=== PATIENT | female | born 2000 | race Hispanic/Latino ===

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

== ENCOUNTER 2019-09-12 20:30 | Inpatient (IN) ==
[2019-09-12 21:00] LABS: URINE SOURCE VOIDED
[2019-09-12 21:12] LABS: BILIRUBIN URINE NEGATIVE (NEGATIVE); BLOOD URINE SMALL (NEGATIVE); COLOR YELLOW; GLUCOSE URINE NEGATIVE (NEGATIVE); KETONE URINE NEGATIVE (NEGATIVE); LEUKOCYTES URINE NEGATIVE (NEGATIVE); NITRITE URINE NEGATIVE (NEGATIVE); PH URINE 6.5; PROTEIN URINE TRACE mg/dL (NEGATIVE); SP GRAVITY URINE 1.027; TURBIDITY URINE CLEAR (CLEAR); UROBILINOGEN URINE 2 mg/dL (NORMAL)
[2019-09-12 21:15] LABS: UR AMPHETAMINES QUAL NONE DETECTED (NONE DETECT); UR BARBITUATES QUAL NONE DETECTED (NONE DETECT); UR BENZODIAZEPIN QUAL NONE DETECTED (NONE DETECT); UR CANNABINOIDS QUAL NONE DETECTED (NONE DETECT); UR COCAINE QUAL NONE DETECTED (NONE DETECT); UR METHADONE QUAL NONE DETECTED (NONE DETECT); UR OPIATES QUAL NONE DETECTED (NONE DETECT); UR OXYCODONE QUAL NONE DETECTED (NONE DETECT); UR PCP QUAL NONE DETECTED (NONE DETECT)
[2019-09-12] MEDS ORDERED: AMPICILLIN 2 GM in NS 100 ML IV ONE (21:48)
[2019-09-12] MEDS ORDERED: KEFZOL 1 GM/D5W 1 GM/50 ML IVPB IV PRN (21:48)
[2019-09-12] MEDS ORDERED: PEPCID IV PRN (21:48)
[2019-09-12] MEDS ORDERED: REGLAN PO ONE (21:48)
[2019-09-12] MEDS ORDERED: PEPCID PO ONE (21:48)
[2019-09-12] MEDS ORDERED: PEPCID PO PRN (21:48)
[2019-09-12] MEDS ORDERED: STADOL IV PRN (21:48)
[2019-09-12] MEDS ORDERED: TYLENOL PO PRN (21:48)
[2019-09-12] MEDS ORDERED: SODIUM CHLORIDE 0.9% INJ SCH (22:00)
[2019-09-12] MEDS ORDERED: PITOCIN 30 UNITS/NS 30 UNIT/500 ML IV.SOLN IV SCH (22:00)
[2019-09-12] MEDS: LR 1,000 ML IV SCH (22:45)
[2019-09-12 23:21] LABS: BASO# 0.02 X1000 (0.0-0.2); BASO% 0.3 % (0.0-0.8); EOS# 0.08 X1000 (0.0-0.7); EOS% 1.1 % (0.0-10.0); HEMATOCRIT 37.8 % (37.0-47.0); HEMOGLOBIN 12.3 g/dL (12.0-16.0); IMM GRAN# 0.03 X1000 (0.0-0.04); IMM GRAN% 0.4 % (0.0-0.5); LYMPH% 34.9 % (20.5-51.1); MCHC 32.5 g/dL (33-37); MCV 86.1 FL (81-99); MONO# 0.48 X1000 (0.11-0.59); MONO% 6.5 % (1.7-9.3); MPV 10.5 FL (7.4-10.4); NEUT# 4.23 X1000 (1.4-6.5); NEUT% 56.8 % (42.2-75.2); PLT 196 X1000 (130-400); RBC 4.39 XMIL (4.2-5.4); RDW 14.8 % (11.5-14.5); WBC 7.44 X1000 (4.8-10.8)
[2019-09-12] MEDS ORDERED: AYR NASAL SPRAY NAS PRN (23:34)
--- NOTE | 2019-09-12 23:41 | HISTORY AND PHYSICAL ---
HISTORY OF PRESENT ILLNESS: The patient is a 18-year-old 2, para 1, at approximately 40 weeks gestation who presents to Labor and delivery with rupture of membranes and early labor. is complicated by minimal care, history of gestational diabetes in previous . No diabetes screening this . Fingerstick is 76. PREVIOUS MEDICAL HISTORY: Negative. PREVIOUS SURGICAL HISTORY: Negative. OB HISTORY: Pertinent for 1 prior vaginal delivery, 8 pounds and 2 ounces, uncomplicated. ALLERGIES: To medicines, none. MEDICINES: vitamins. REVIEW OF SYSTEMS: Negative for chest pain, shortness of breath, headache, cough, runny nose, fever, sore throat. Positive for movement and leakage of fluid. No vaginal bleeding. PHYSICAL EXAM: GENERAL: This is well-developed, woman appearing her stated age. Abdomen is gravid, Dong's to 4000 g. HEART: Regular rate and rhythm. Breathing is nonlabored. EXTREMITIES: Without clubbing, cyanosis, edema. PELVIC: 3 cm, 50% by RN. INITIAL ASSESSMENT: A 18-year-old 2, para 1, at 40 weeks gestation. complicated by minimal care and history of gestational diabetes. 1. History of gestational diabetes. Current fingerstick is 76 and estimated weight is 4000 g by Odng's. 2. Rupture of membranes. Unknown group B strep. Plan ampicillin for GBS prophylaxis. 3. Pain management. The patient proceeded to Labor and delivery in 1st with no pain management and anticipate same. 4. well being, reactive tracing. 5. Anticipate normal spontaneous vaginal delivery. [facility]
[2019-09-13] MEDS: AMPICILLIN 1 GM in NS 50 ML IV SCH ×4 (02:30→20:50)
[2019-09-13] MEDS ORDERED: MINERAL OIL PO ONE (04:55)
[2019-09-13] MEDS: ZOFRAN IV PRN ×2 (05:40→11:50)
[2019-09-13] MEDS ORDERED: XYLOCAINE-MPF 1% INJ ONE (06:18)
--- NOTE | 2019-09-13 06:20 | OB/GYN PROGRESS NOTE ---
- Subjective at 40 wks PROM on OT receiving amp for GBS GBS FHT cat 1 Cx B9b-3dem SVE 6cm per RN anticipate OB Physical Exam Vital Signs - 8 hr 09/13/19 00:08 Temperature 97.7 F Pulse Rate 87 Respiratory Rate 18 Blood Pressure 119/72 O2 Sat by Pulse Oximetry 99 - CONSTITUTIONAL General Appearance: appears well - GENITOURINARY Vaginal Exam: 6cm Active Medications Generic Name Dose Route Start Last Admin Trade Name Freq PRN Reason Stop Dose Admin Acetaminophen 650 mg 09/12/19 21:48 Tylenol PO Q4-6H PRN PRN Headache Butorphanol Tartrate 2 mg 09/12/19 21:48 09/13/19 05:42 Stadol IV 2 mg PRN PRN Administration Pain Famotidine 20 mg 09/12/19 21:48 Pepcid IV Q12H PRN PRN GI upset or indigestion Famotidine 40 mg 09/12/19 21:48 Pepcid PO Q12H PRN PRN GI upset or indigestion Lactated Ringer's 1,000 mls @ 125 mls/hr 09/12/19 22:00 09/12/19 22:45 Lr IV 125 mls/hr .Q8H ERICKA Administration Oxytocin/Sodium Chloride 30 unit in 500 mls @ 0 mls/hr 09/12/19 22:00 09/13/19 00:30 Pitocin 30 Units/Ns IV 2 mls/hr .Q0M ERICKA Administration As Directed Ampicillin Sodium 1 gm/ Sodium 50 mls @ 100 mls/hr 09/13/19 01:49 09/13/19 02:30 Chloride IV 100 mls/hr Q4H ERICKA Administration Cefazolin Sodium/Dextrose 1 gm in 50 mls @ 100 mls/hr 09/12/19 21:48 Kefzol 1 Gm/D5w IV ONCE PRN PRN SECTION Ondansetron HCl 4 mg 09/12/19 21:48 09/13/19 05:40 Zofran IV 4 mg PRN PRN Administration Nausea Sodium Chloride 5 - 10 ml 09/12/19 22:00 Sodium Chloride 0.9% INJ DIRECTED ERICKA Sodium Chloride 0 ml 09/12/19 23:34 09/12/19 23:42 [place] Nasal [place] CINDY 2 spray PRN PRN Administration Congestion Laboratory Results - last 24 hr 09/12/19 09/12/19 09/12/19 20:35 20:35 20:48 WBC RBC Hgb Hct MCV MCH MCHC RDW Std Deviation Plt Count MPV Immature Gran % (Auto) Neut % (Auto) Lymph % (Auto) [place] % (Auto) Eos % (Auto) Baso % (Auto) Immature Gran # (Auto) Neut # (Auto) Lymph # (Auto) [place] # (Auto) Eos # (Auto) Baso # (Auto) POC Glucose Urine Source VOIDED Urine Color YELLOW Urine Turbidity CLEAR Urine pH 6.5 Ur Specific [place] 1.027 Urine Protein TRACE A Ur Glucose (Stick) NEGATIVE Ur Ketones (Stick) NEGATIVE Urine Blood SMALL A Urine Nitrite NEGATIVE Urine Bilirubin NEGATIVE Urobilinogen Dipstick 2 A Urine Leukocytes NEGATIVE Membranes Rupture POSITIVE Urine Opiates Screen NONE DETECTED Ur Oxycodone Screen NONE DETECTED Ur Methadone, Qual NONE DETECTED Ur Barbiturates Screen NONE DETECTED Ur Phencyclidine Scrn NONE DETECTED Ur Amphetamines Screen NONE DETECTED U Benzodiazepines Scrn NONE DETECTED Urine Cocaine Screen NONE DETECTED U Cannabinoids Screen NONE DETECTED RPR Blood Type Antibody Screen 09/12/19 09/12/19 09/12/19 21:44 22:45 22:45 WBC 7.44 RBC 4.39 Hgb 12.3 Hct 37.8 MCV 86.1 MCH 28.0 MCHC 32.5 L RDW Std Deviation 14.8 H Plt Count 196 MPV 10.5 H Immature Gran % (Auto) 0.4 Neut % (Auto) 56.8 Lymph % (Auto) 34.9 [place] % (Auto) 6.5 Eos % (Auto) 1.1 Baso % (Auto) 0.3 Immature Gran # (Auto) 0.03 Neut # (Auto) 4.23 Lymph # (Auto) 2.60 [place] # (Auto) 0.48 Eos # (Auto) 0.08 Baso # (Auto) 0.02 POC Glucose 74 Urine Source Urine Color Urine Turbidity Urine pH Ur Specific [place] Urine Protein Ur Glucose (Stick) Ur Ketones (Stick) Urine Blood Urine Nitrite Urine Bilirubin Urobilinogen Dipstick Urine Leukocytes Membranes Rupture Urine Opiates Screen Ur Oxycodone Screen Ur Methadone, Qual Ur Barbiturates Screen Ur Phencyclidine Scrn Ur Amphetamines Screen U Benzodiazepines Scrn Urine Cocaine Screen U Cannabinoids Screen RPR NON-REACTIVE Blood Type Antibody Screen 09/12/19 22:45 WBC RBC Hgb Hct MCV MCH MCHC RDW Std Deviation Plt Count MPV Immature Gran % (Auto) Neut % (Auto) Lymph % (Auto) [place] % (Auto) Eos % (Auto) Baso % (Auto) Immature Gran # (Auto) Neut # (Auto) Lymph # (Auto) [place] # (Auto) Eos # (Auto) Baso # (Auto) POC Glucose Urine Source Urine Color Urine Turbidity Urine pH Ur Specific [place] Urine Protein Ur Glucose (Stick) Ur Ketones (Stick) Urine Blood Urine Nitrite Urine Bilirubin Urobilinogen Dipstick Urine Leukocytes Membranes Rupture Urine Opiates Screen Ur Oxycodone Screen Ur Methadone, Qual Ur Barbiturates Screen Ur Phencyclidine Scrn Ur Amphetamines Screen U Benzodiazepines Scrn Urine Cocaine Screen U Cannabinoids Screen RPR Blood Type A POSITIVE Antibody Screen NEGATIVE
[2019-09-13] MEDS: LR 1,000 ML IV SCH ×2 (06:33→22:48)
--- NOTE | 2019-09-13 08:19 | OB/GYN PROGRESS NOTE ---
- Subjective 18 yo at 40w0d with PROM, limited PNC, Hx A1-GDM Patient seen and examined. AROM of forebag performed with clear fluid. Head well applied to cervix. SVE: 6/80/-2. She is feeling regular contractions. She declines an epidural at this time. She is receiving ampicillin for GBS unknown. Pitocin at 20mu/min. OB Physical Exam Vital Signs - 8 hr 09/13/19 07:39 Temperature 97.6 F Pulse Rate 78 Respiratory Rate 16 Blood Pressure 118/62 O2 Sat by Pulse Oximetry 100 - CONSTITUTIONAL General Appearance: appears well, alert, no apparent distress - HEAD, EARS, NOSE, MOUTH & THROAT HENMT: normocephalic/atraumatic - RESPIRATORY Respiratory: lungs clear, no respiratory distress - CARDIOVASCULAR Cardiovascular: regular rate, rhythm - GASTROINTESTINAL (ABDOMEN) Abdominal Exam: non tender, soft, other (gravid) - GENITOURINARY Cervica Dilation: 6 Cervical Effacement: 80 Station: -2 Heart Rate: 120/moderate/+accel/no decel [place]: Q1-2 minutes - MUSCULOSKELETAL Extremity: normal range of motion, non-tender - NEUROLOGIC Neurologic: grossly normal - PSYCHIATRIC Psych/Mental Status: normal mood/affect Active Medications Generic Name Dose Route Start Last Admin Trade Name Freq PRN Reason Stop Dose Admin Acetaminophen 650 mg 09/12/19 21:48 Tylenol PO Q4-6H PRN PRN Headache Butorphanol Tartrate 2 mg 09/12/19 21:48 09/13/19 05:42 Stadol IV 2 mg PRN PRN Administration Pain Famotidine 20 mg 09/12/19 21:48 Pepcid IV Q12H PRN PRN GI upset or indigestion Famotidine 40 mg 09/12/19 21:48 Pepcid PO Q12H PRN PRN GI upset or indigestion Lactated Ringer's 1,000 mls @ 125 mls/hr 09/12/19 22:00 09/13/19 06:33 Lr IV 125 mls/hr .Q8H ERICKA Administration Oxytocin/Sodium Chloride 30 unit in 500 mls @ 0 mls/hr 09/12/19 22:00 09/13/19 00:30 Pitocin 30 Units/Ns IV 2 mls/hr .Q0M ERICKA Administration As Directed Ampicillin Sodium 1 gm/ Sodium 50 mls @ 100 mls/hr 09/13/19 01:49 09/13/19 06:33 Chloride IV 100 mls/hr Q4H ERICKA Administration Cefazolin Sodium/Dextrose 1 gm in 50 mls @ 100 mls/hr 09/12/19 21:48 Kefzol 1 Gm/D5w IV ONCE PRN PRN SECTION Ondansetron HCl 4 mg 09/12/19 21:48 09/13/19 05:40 Zofran IV 4 mg PRN PRN Administration Nausea Sodium Chloride 5 - 10 ml 09/12/19 22:00 Sodium Chloride 0.9% INJ DIRECTED ERICKA Sodium Chloride 0 ml 09/12/19 23:34 09/12/19 23:42 [place] Nasal [place] CINDY 2 spray PRN PRN Administration Congestion Laboratory Results - last 24 hr 09/12/19 09/12/19 09/12/19 20:35 20:35 20:48 WBC RBC Hgb Hct MCV MCH MCHC RDW Std Deviation Plt Count MPV Immature Gran % (Auto) Neut % (Auto) Lymph % (Auto) [place] % (Auto) Eos % (Auto) Baso % (Auto) Immature Gran # (Auto) Neut # (Auto) Lymph # (Auto) [place] # (Auto) Eos # (Auto) Baso # (Auto) POC Glucose Urine Source VOIDED Urine Color YELLOW Urine Turbidity CLEAR Urine pH 6.5 Ur Specific [place] 1.027 Urine Protein TRACE A Ur Glucose (Stick) NEGATIVE Ur Ketones (Stick) NEGATIVE Urine Blood SMALL A Urine Nitrite NEGATIVE Urine Bilirubin NEGATIVE Urobilinogen Dipstick 2 A Urine Leukocytes NEGATIVE Membranes Rupture POSITIVE Urine Opiates Screen NONE DETECTED Ur Oxycodone Screen NONE DETECTED Ur Methadone, Qual NONE DETECTED Ur Barbiturates Screen NONE DETECTED Ur Phencyclidine Scrn NONE DETECTED Ur Amphetamines Screen NONE DETECTED U Benzodiazepines Scrn NONE DETECTED Urine Cocaine Screen NONE DETECTED U Cannabinoids Screen NONE DETECTED RPR Blood Type Antibody Screen 09/12/19 09/12/19 09/12/19 21:44 22:45 22:45 WBC 7.44 RBC 4.39 Hgb 12.3 Hct 37.8 MCV 86.1 MCH 28.0 MCHC 32.5 L RDW Std Deviation 14.8 H Plt Count 196 MPV 10.5 H Immature Gran % (Auto) 0.4 Neut % (Auto) 56.8 Lymph % (Auto) 34.9 [place] % (Auto) 6.5 Eos % (Auto) 1.1 Baso % (Auto) 0.3 Immature Gran # (Auto) 0.03 Neut # (Auto) 4.23 Lymph # (Auto) 2.60 [place] # (Auto) 0.48 Eos # (Auto) 0.08 Baso # (Auto) 0.02 POC Glucose 74 Urine Source Urine Color Urine Turbidity Urine pH Ur Specific [place] Urine Protein Ur Glucose (Stick) Ur Ketones (Stick) Urine Blood Urine Nitrite Urine Bilirubin Urobilinogen Dipstick Urine Leukocytes Membranes Rupture Urine Opiates Screen Ur Oxycodone Screen Ur Methadone, Qual Ur Barbiturates Screen Ur Phencyclidine Scrn Ur Amphetamines Screen U Benzodiazepines Scrn Urine Cocaine Screen U Cannabinoids Screen RPR NON-REACTIVE Blood Type Antibody Screen 09/12/19 22:45 WBC RBC Hgb Hct MCV MCH MCHC RDW Std Deviation Plt Count MPV Immature Gran % (Auto) Neut % (Auto) Lymph % (Auto) [place] % (Auto) Eos % (Auto) Baso % (Auto) Immature Gran # (Auto) Neut # (Auto) Lymph # (Auto) [place] # (Auto) Eos # (Auto) Baso # (Auto) POC Glucose Urine Source Urine Color Urine Turbidity Urine pH Ur Specific [place] Urine Protein Ur Glucose (Stick) Ur Ketones (Stick) Urine Blood Urine Nitrite Urine Bilirubin Urobilinogen Dipstick Urine Leukocytes Membranes Rupture Urine Opiates Screen Ur Oxycodone Screen Ur Methadone, Qual Ur Barbiturates Screen Ur Phencyclidine Scrn Ur Amphetamines Screen U Benzodiazepines Scrn Urine Cocaine Screen U Cannabinoids Screen RPR Blood Type A POSITIVE Antibody Screen NEGATIVE OB Assessment & Plan (1) PROM with onset of labor within 24 hours of rupture Status: Acute Plan: 19 yo at 40w0d with PROM, RNI, Limited PNC, Hx A1-GDM 1. MF status reassuring, reactive tracing 2. CEFM/TOCO 3. S/p AROM of forebag 4. Continue pitocin augmentation 5. Ampicillin for GBS unknown status 6. Anticipate vaginal delivery
[2019-09-13] MEDS ORDERED: HEMABATE IM ONE (10:46)
[2019-09-13] MEDS ORDERED: METHERGINE ONE ×2 (10:51→10:53)
[2019-09-13] MEDS ORDERED: CYTOTEC ONE ×2 (10:54→10:56)
[2019-09-13] MEDS ORDERED: CYKLOKAPRON 1,000 MG in NS 100 ML IV ONE (10:59)
[2019-09-13 11:21] LABS: BASO# 0.01 X1000 (0.0-0.2); BASO% 0.1 % (0.0-0.8); EOS# 0.01 X1000 (0.0-0.7); EOS% 0.1 % (0.0-10.0); HEMATOCRIT 36.2 % (37.0-47.0); HEMOGLOBIN 11.9 g/dL (12.0-16.0); IMM GRAN# 0.02 X1000 (0.0-0.04); IMM GRAN% 0.2 % (0.0-0.5); LYMPH# 1.81 X1000 (1.2-3.4); LYMPH% 18.7 % (20.5-51.1); MCH 28.5 PG (27-31); MCHC 32.9 g/dL (33-37); MCV 86.6 FL (81-99); MONO# 0.37 X1000 (0.11-0.59); MONO% 3.8 % (1.7-9.3); MPV 10.5 FL (7.4-10.4); NEUT# 7.45 X1000 (1.4-6.5); NEUT% 77.1 % (42.2-75.2); PLT 189 X1000 (130-400); RBC 4.18 XMIL (4.2-5.4); RDW 14.9 % (11.5-14.5); WBC 9.67 X1000 (4.8-10.8)
[2019-09-13] MEDS ORDERED: MINERAL OIL PO PRN (11:22)
[2019-09-13] MEDS ORDERED: AMBIEN PO PRN (11:22)
[2019-09-13] MEDS ORDERED: PERI MEDS (DERMOPLAST/NUPERCAINAL/TUCKS) MISC PRN (11:22)
[2019-09-13] MEDS ORDERED: XYLOCAINE-MPF 1% INJ PRN (11:22)
[2019-09-13] MEDS ORDERED: PERCOCET-5 PO PRN (11:22)
[2019-09-13] MEDS ORDERED: M-M-R II VACCINE SUBQ ONE (11:22)
[2019-09-13] MEDS ORDERED: HYDROXYZINE IM PRN (11:22)
[2019-09-13] MEDS ORDERED: PITOCIN IM PRN (11:22)
[2019-09-13] MEDS ORDERED: BOOSTRIX VACCINE IM ONE (11:22)
[2019-09-13] MEDS ORDERED: CYTOTEC PO PRN (11:22)
[2019-09-13] MEDS ORDERED: BENADRYL IV PRN (11:22)
[2019-09-13] MEDS ORDERED: ATARAX PO PRN (11:22)
[2019-09-13] MEDS ORDERED: BENADRYL PO PRN (11:22)
[2019-09-13] MEDS ORDERED: PITOCIN 20 UNITS/NS 20 UNITS/1,000 ML IV.SOLN IV SCH (11:30)
[2019-09-13] MEDS ORDERED: PITOCIN 30 UNITS/NS 30 UNIT/500 ML IV.SOLN IV SCH (11:30)
[2019-09-13] MEDS ORDERED: MORPHINE IV ONE (11:32)
[2019-09-13 11:44] LABS: INR 0.99; PROTIME 13.1 Seconds (11.0-16.0)
[2019-09-13 11:45] LABS: PTT 28.5 Seconds (22.3-41.8)
--- NOTE | 2019-09-13 14:19 | OPERATIVE NOTE ---
PROCEDURE DATE: PROCEDURE PERFORMED: Spontaneous vaginal delivery with hemorrhage. DESCRIPTION OF PROCEDURE: A 18-year-old, G2, P1-0-0-1 at 40 weeks and 0 days, who presented with premature rupture of membranes. Labor was augmented with Pitocin and artificial rupture of amniotic forebag. She progressed to complete, and underwent a spontaneous vaginal delivery of a vigorous viable male infant in CAROL presentation with Apgars of 8 and 10. Infants head, shoulders, and body delivered without difficulty with maternal pushing effort. After delivery, brisk bleeding was noted from the uterus. Pitocin was started, and the placenta delivered spontaneously intact with a 3-vessel cord. The uterus was noted to be atonic with brisk bleeding coming from the cervical os. The patient received 0.25 mg of Hemabate IM, methergine 0.2 mg IM, and received 800 mcg of rectal Cytotec. Fundal massage was performed, and bleeding slowly decreased. Stat CBC and coags were obtained. She received tranexamic acid 1 gram IV x1. After administration of uterotonics and fundal massage, uterine fundus was noted to be firm, and bleeding significantly decreased. Estimated blood loss was 1000 mL. Urine straight cath was performed with approximately 300 mL of clear urine. Blood pressure 121/73, heart rate 95. Will continue strict urine output and pad counts. We will plan to schedule methargen 0.2 mg p.o. every 6 hours for 3 doses, and monitor bleeding carefully. No cervical lacerations or vaginal lacerations visualized. Anesthesia was none. Pediatric nurse in attendance. Will continue to monitor closely. [facility]
[2019-09-13] MEDS: METHERGINE PO SCH ×2 (16:28→21:15)
[2019-09-13] MEDS: MOTRIN PO PRN (16:29)
[2019-09-13] MEDS: PERCOCET-10 PO PRN (21:26)
[2019-09-13] MEDS: PERICOLACE PO SCH (22:47)
[2019-09-14 05:39] LABS: BASO# 0.01 X1000 (0.0-0.2); BASO% 0.1 % (0.0-0.8); EOS# 0.07 X1000 (0.0-0.7); EOS% 0.9 % (0.0-10.0); HEMATOCRIT 30.4 % (37.0-47.0); HEMOGLOBIN 9.8 g/dL (12.0-16.0); LYMPH% 31.3 % (20.5-51.1); MCH 28.3 PG (27-31); MCHC 32.2 g/dL (33-37); MCV 87.9 FL (81-99); MONO# 0.56 X1000 (0.11-0.59); MONO% 7.3 % (1.7-9.3); MPV 10.3 FL (7.4-10.4); NEUT# 4.64 X1000 (1.4-6.5); NEUT% 60.4 % (42.2-75.2); PLT 182 X1000 (130-400); RBC 3.46 XMIL (4.2-5.4); RDW 14.9 % (11.5-14.5); WBC 7.68 X1000 (4.8-10.8)
[2019-09-14] MEDS: LR 1,000 ML IV SCH (06:24)
[2019-09-14] MEDS: MOTRIN PO PRN ×2 (08:24→17:54)
[2019-09-14] MEDS: FERROUS SULFATE PO SCH (08:24)
[2019-09-14] MEDS: PERICOLACE PO SCH (20:31)
[2019-09-15] MEDS: PERCOCET-10 PO PRN (00:24)
[2019-09-15] MEDS ORDERED: FLU VACCINE IM ONE (08:00)
[2019-09-15 08:15] VITALS: BP 138/73
[2019-09-15] MEDS: FERROUS SULFATE PO SCH (08:29)
[2019-09-15] MEDS: MOTRIN PO PRN (08:41)
--- NOTE | 2019-09-15 11:39 | DISCHARGE SUMMARY ---
ADMISSION DATE: 09/12/2019 DISCHARGE DATE: ADMITTING DIAGNOSIS: 1. Limited care. 2. Labor. DIAGNOSIS: 1. Status post spontaneous vaginal delivery. 2. hemorrhage. 3. Limited care. PHYSICAL EXAMINATION: Vital signs: Temperature is 98.4, blood pressure 138/73, on room air, respiration of 16, pulse of 98. HEENT: Unremarkable. Abdomen: Soft, nontender. Uterus is firm. Lochia is minimal. Extremities: Negative. Her discharge hemoglobin is 9.8, hematocrit 30.4, platelet is 182. ASSESSMENT AND PLAN: The patient is day number 2 status post spontaneous vaginal delivery. Baby was transferred to [place] for further care, and the patient is requesting discharge. She will be discharged home with plans to follow up in 4 weeks with her [employer] to discuss contraceptive care. cc: Jacque Holbrook MD
== END 2019-09-15 11:30 | disposition home or self-care (01) ==
LOC: OPLD 20:30 → LD 20:32
PROVIDERS: ADMIT Obstetrics & Gynecology; ATTEND Obstetrics & Gynecology